=== PATIENT | male | born 1940 | race Caucasian/White ===

== ENCOUNTER 2018-02-15 00:16 | Emergency (ER) | payer SELFPAY ==
[~2018-02-15] VITALS: Ht 172.7 cm; Wt 60.3 kg
[~2018-02-15 00:16] MED LIST: ACET325 PO; ALBU90OI INH; CHOL10002; CIPRO500 MG PO; CYAN1000 PO; LAMO25 PO; LOVA40; METO100ER PO; OXYB5 PO; PHENY30ER PO; QUET300 PO; SENN187 PO; STRIVERDI RESPIM4 GM IH; URSO300 PO
[2018-02-15 01:14] LABS: BASOPHILS ABSOLUTE AUTO 0.03 K/mm3 (0.00-0.23); BASOPHILS PERCENT AUTO 0 % (0-2); EOSINOPHILS ABSOLUTE AUTO 0.44 K/mm3 (0.00-0.68); EOSINOPHILS PERCENT AUTO 6 % (0-6); Hematocrit 32.6 % (37.0-53.0); Hemoglobin 10.9 g/dL (13.5-17.5); IMMATURE GRAN ABSOLUTE AUTO 0.03 K/mm3 (0.00-0.10); IMMATURE GRAN PERCENT AUTO 0 % (0-1); LYMPHOCYTES ABSOLUTE AUTO 1.72 K/mm3 (0.84-5.20); LYMPHOCYTES PERCENT AUTO 24 % (21-46); MONOCYTES ABSOLUTE AUTO 0.66 K/mm3 (0.16-1.47); MONOCYTES PERCENT AUTO 9 % (4-13); Mean Corpuscular HGB 33.1 pg (26.0-34.0); Mean Corpuscular HGB Conc 33.4 g/dL (31.5-36.5); Mean Corpuscular Volume 99 fL (80-100); Mean Platelet Volume 9.9 fL (9.1-12.4); NEUTROPHILS ABSOLUTE AUTO 4.25 K/mm3 (1.96-9.15); NEUTROPHILS PERCENT AUTO 60 % (41-73); Platelet Count 163 K/mm3 (150-400); RDW Coefficient Variation 13.5 % (11.7-14.2); RDW Standard Deviation 48.7 fL (35.1-46.3); Red Blood Cell Count 3.29 M/mm3 (4.30-5.90); White Blood Cell Count 7.13 K/mm3 (4.00-11.30)
[2018-02-15 01:31] LABS: Alanine Aminotransfer (ALT/SGP 17 U/L (12-78); Albumin, Blood 3.3 g/dL (3.4-5.0); Albumin/Globulin Ratio 0.9 (0.8-1.8); Alk Phos 65 U/L (50-136); Anion Gap 6 mmol/L (6-16); Aspartate Aminotrans (AST/SGOT 15 U/L (12-37); Bilirubin, Total 0.2 mg/dL (0.1-1.0); Blood Urea Nitrogen 21 mg/dL (8-24); Bun/Creatinine Ratio 22.2 (12.0-20.0); CO2, Blood 30 mmol/L (21-32); Calcium, Blood 7.9 mg/dL (8.5-10.1); Chloride, Blood 105 mmol/L (98-108); Creatinine, Blood 0.94 mg/dL (0.60-1.20); Globulin, Blood 3.7 g/dL (2.2-4.0); Glomerular Filtration Rate >60 (60-); Glucose, Blood 123 mg/dL (70-99); Potassium, Blood 4.2 mmol/L (3.5-5.5); Sodium, Blood 141 mmol/L (136-145); Troponin I <0.015 ng/mL (0.000-0.040)
== END 2018-02-15 03:10 | disposition home or self-care (01) ==
LOC: ER 00:16
PROVIDERS: Emergency Medicine
DX: R07.9 Chest pain, unspecified (principal); I25.10 Atherosclerotic heart disease of native coronary artery without angina pectoris; J44.9 Chronic obstructive pulmonary disease, unspecified; Z79.899 Other long term (current) drug therapy
CPT/HCPCS: 36415; 71046; 80053; 83880; 84484; 85025; 93005; 93010; 99284-25

== ENCOUNTER 2018-09-16 22:13 | Observation (INO) | payer OTHER ==
[~2018-09-16] VITALS: Ht 177.8 cm; Wt 65.8 kg
[~2018-09-16 22:13] MED LIST changes: -CHOL10002; +CHOL10002 PO; -CYAN1000 PO; +CYAN500 PO; +PHENY100ER PO; -PHENY30ER PO
[2018-09-16 22:51] LABS: BASOPHILS ABSOLUTE AUTO 0.04 K/mm3 (0.00-0.23); BASOPHILS PERCENT AUTO 1 % (0-2); EOSINOPHILS ABSOLUTE AUTO 0.36 K/mm3 (0.00-0.68); EOSINOPHILS PERCENT AUTO 5 % (0-6); Hematocrit 34.3 % (37.0-53.0); Hemoglobin 11.4 g/dL (13.5-17.5); IMMATURE GRAN ABSOLUTE AUTO 0.02 K/mm3 (0.00-0.10); IMMATURE GRAN PERCENT AUTO 0 % (0-1); LYMPHOCYTES PERCENT AUTO 21 % (21-46); MONOCYTES ABSOLUTE AUTO 0.77 K/mm3 (0.16-1.47); MONOCYTES PERCENT AUTO 11 % (4-13); Mean Corpuscular HGB 33.4 pg (26.0-34.0); Mean Corpuscular HGB Conc 33.2 g/dL (31.5-36.5); Mean Corpuscular Volume 101 fL (80-100); Mean Platelet Volume 9.3 fL (9.1-12.4); NEUTROPHILS PERCENT AUTO 63 % (41-73); Platelet Count 171 K/mm3 (150-400); RDW Coefficient Variation 13.4 % (11.7-14.2); RDW Standard Deviation 50.2 fL (35.1-46.3); Red Blood Cell Count 3.41 M/mm3 (4.30-5.90); White Blood Cell Count 7.29 K/mm3 (4.00-11.30)
[2018-09-16 23:06] LABS: Alanine Aminotransfer (ALT/SGP 13 U/L (12-78); Albumin, Blood 3.2 g/dL (3.4-5.0); Albumin/Globulin Ratio 0.9 (0.8-1.8); Alk Phos 73 U/L (50-136); Anion Gap 6 mmol/L (6-16); Aspartate Aminotrans (AST/SGOT 9 U/L (12-37); Bilirubin, Total 0.2 mg/dL (0.1-1.0); Blood Urea Nitrogen 20 mg/dL (8-24); Bun/Creatinine Ratio 20.3 (12.0-20.0); CO2, Blood 29 mmol/L (21-32); Calcium, Blood 7.6 mg/dL (8.5-10.1); Chloride, Blood 107 mmol/L (98-108); Creatinine, Blood 0.99 mg/dL (0.60-1.20); Globulin, Blood 3.7 g/dL (2.2-4.0); Glomerular Filtration Rate >60 (60-); Glucose, Blood 110 mg/dL (70-99); Potassium, Blood 3.7 mmol/L (3.5-5.5); Sodium, Blood 142 mmol/L (136-145); Total Protein, Blood 6.9 g/dL (6.4-8.2); Troponin I <0.015 ng/mL (0.000-0.040)
[2018-09-17 01:55] LABS: Source, Urine Clean Catch
[2018-09-17 02:06] LABS: Bilirubin, Urine Neg (Neg); Blood, Urine 4+ (Neg); Glucose Qualitative, Urine Neg (Neg); Ketones, Urine 1+ (Neg); Leukocyte Esterase, Urine 3+ (Neg); Nitrite, Urine Pos (Neg); Protein, Urine 2+ (Neg); Urobilinogen, Urine NORM (Normal); pH, Urine 6.5 (5.0-8.0)
[2018-09-17 02:10] LABS: Appearance, Urine Cloudy (Clear); Color, Urine Yellow (P-Yellow)
[2018-09-17 02:24] LABS: White Blood Cells, Urine 25-50 /hpf (0-5)
[2018-09-17 02:25] LABS: Bacteria Many /hpf; Squamous Epithelial Cells Few /hpf (Few)
--- NOTE | 2018-09-17 02:25 | NUR ---
PT IS A NEW ADMIT FROM ER FOR CHEST PAIN. HAS DENIED CP SINCE ARRIVAL TO UNIT. PT HAS BEEN ST CATH PER HOME ROUTINE BEFORE BED, URINE SENT TO LAB. TELE IS IN PLACE NSR. IVF STARTED. DNR ORDERED VERIFIED WITH VIKI AND PLACED PURPLE BAND ON LEFT WRIST. CALL LIGHT IN REACH. PT IS RESTING COMFORTABLY, NO FURTHER QUESTIONS.
--- NOTE | 2018-09-17 03:54 | NUR ---
CALLED DR. MCDONOUGH RE LAB RESULTS. NEW ORDERS FOR IV ABX AND CTA TO R/O PE.
--- NOTE | 2018-09-17 05:02 | NUR ---
NO SIG CHANGES SINCE ARRIVING TO UNIT. IV ABX HAVE BEEN INITIATED FOR UTI. WILL DO CTA THIS AM FOR R/O PE. HAS DENIED ANY CP. REPEAT TROP IS SCHEDULED FOR 629. CALL LIGHT IN REACH.
[2018-09-17 07:01] LABS: Hematocrit 34.1 % (37.0-53.0); Hemoglobin 11.3 g/dL (13.5-17.5); Mean Corpuscular HGB 33.6 pg (26.0-34.0); Mean Corpuscular HGB Conc 33.1 g/dL (31.5-36.5); Mean Corpuscular Volume 102 fL (80-100); Mean Platelet Volume 9.1 fL (9.1-12.4); Platelet Count 170 K/mm3 (150-400); RDW Coefficient Variation 13.3 % (11.7-14.2); Red Blood Cell Count 3.36 M/mm3 (4.30-5.90); White Blood Cell Count 6.17 K/mm3 (4.00-11.30)
[2018-09-17 07:13] LABS: Alanine Aminotransfer (ALT/SGP 9 U/L (12-78); Albumin/Globulin Ratio 0.9 (0.8-1.8); Alk Phos 70 U/L (50-136); Anion Gap 5 mmol/L (6-16); Aspartate Aminotrans (AST/SGOT 8 U/L (12-37); Bilirubin, Total 0.7 mg/dL (0.1-1.0); Blood Urea Nitrogen 18 mg/dL (8-24); Bun/Creatinine Ratio 21.3 (12.0-20.0); CO2, Blood 29 mmol/L (21-32); CPK Creatine Kinase 41 U/L (39-308); Calcium, Blood 7.4 mg/dL (8.5-10.1); Chloride, Blood 108 mmol/L (98-108); Creatinine, Blood 0.85 mg/dL (0.60-1.20); Globulin, Blood 3.5 g/dL (2.2-4.0); Glomerular Filtration Rate >60 (60-); Glucose, Blood 81 mg/dL (70-99); Potassium, Blood 3.9 mmol/L (3.5-5.5); Sodium, Blood 142 mmol/L (136-145); Total Protein, Blood 6.5 g/dL (6.4-8.2); Troponin I <0.015 ng/mL (0.000-0.040)
[2018-09-17] MEDS ORDERED: PHENY100ER PO (08:21)
[2018-09-17] MEDS ORDERED: PRED1 PO (08:23)
[2018-09-17] MEDS ORDERED: AZIT250 PO (08:23)
[2018-09-17] MEDS ORDERED: BUDE10.22 INH (08:24)
--- NOTE | 2018-09-17 08:50 | NUR ---
PT TO BE GOING TO STUDY. PT REQ TO BE STRAIGHT CATH BEFORE GOING TO STUDY. PT REPORTS BEING S/C AT HOME.
--- NOTE | 2018-09-17 09:25 | NUR ---
PT BACK FROM HAVING PROCEDURE. DR PARISI HERE TO SEE PT.
--- NOTE | 2018-09-17 11:40 | NUR ---
PT RECENTLY BACK FROM STUDY AGAIN. PT REQ TO BE STRAIGHT CATH. PT S/C PER ORDER/PT REQ.
[2018-09-17 14:45] LABS: CPK Creatine Kinase 55 U/L (39-308); Troponin I <0.015 ng/mL (0.000-0.040)
--- NOTE | 2018-09-17 15:55 | NUR ---
DISCHARGE: PT DISCHARGED WITH ASSIST FROM CODE NUMBER STAMPER. PT AND FAMILY REPORTS UNDERSTADING OF DISCHARGE INSTRUCTIONS. IV OUT WNL. PT AND FAMILY REPORTS HAVING APPR EQUIP AT HOME TO ASSIST PT.
== END 2018-09-17 16:00 | disposition home or self-care (01) ==
LOC: ER 22:13 → SURS 22:14
PROVIDERS: Emergency Medicine; ADMIT Internal Medicine
DX: R07.9 Chest pain, unspecified (principal); J44.9 Chronic obstructive pulmonary disease, unspecified; E78.5 Hyperlipidemia, unspecified; I95.9 Hypotension, unspecified; I25.2 Old myocardial infarction; I10 Essential (primary) hypertension; I25.10 Atherosclerotic heart disease of native coronary artery without angina pectoris; D64.9 Anemia, unspecified; R79.1 Abnormal coagulation profile; F17.210 Nicotine dependence, cigarettes, uncomplicated; Z79.899 Other long term (current) drug therapy; Z87.19 Personal history of other diseases of the digestive system; Z95.1 Presence of aortocoronary bypass graft
CPT/HCPCS: 36415; 51701; 71046; 71260; 78452; 80053; 81001; 82550; 83690; 84484; 85025; 85027; 85379; 87077; 87086; 87186; 93005; 93010; 93017; 94640; 94760; 96365; 96372; 96374; 96375; 99285-25; A9500; G0378; J0696; J0706; J1650; J2270; J2405; J2785; J2930; J7030; Q9967

== ENCOUNTER 2020-04-17 12:41 | Inpatient (IN) | payer OTHER, MEDICARE ==
[~2020-04-17] VITALS: Ht 172.7 cm; Wt 66.2 kg
[~2020-04-17 12:41] MED LIST changes: +AZIT250 PO; +BUDE10.22 INH; +LAMO100 PO; +Motion Sickness25 M1 PO; +ONDA4; +OXYB5; +PRED1 PO; +PRED5 PO; +QUET100 PO
[2020-04-17] MEDS ORDERED: SYMBICORT 160-4.6 GM INH (12:54)
[2020-04-17] MEDS ORDERED: PHENYTOIN SODI100 MG PO ×2 (12:55→12:56)
[2020-04-17] MEDS ORDERED: OXYB5 PO (12:55)
[2020-04-17] MEDS ORDERED: ALBU90OI INH (12:56)
[2020-04-17 14:24] LABS: BASOPHILS ABSOLUTE AUTO 0.03 K/mm3 (0.00-0.23); BASOPHILS PERCENT AUTO 0 % (0-2); EOSINOPHILS ABSOLUTE AUTO 0.01 K/mm3 (0.00-0.68); EOSINOPHILS PERCENT AUTO 0 % (0-6); Hematocrit 35.1 % (37.0-53.0); Hemoglobin 11.7 g/dL (13.5-17.5); IMMATURE GRAN ABSOLUTE AUTO 0.07 K/mm3 (0.00-0.10); IMMATURE GRAN PERCENT AUTO 1 % (0-1); LYMPHOCYTES ABSOLUTE AUTO 1.14 K/mm3 (0.84-5.20); LYMPHOCYTES PERCENT AUTO 8 % (21-46); MONOCYTES ABSOLUTE AUTO 1.39 K/mm3 (0.16-1.47); MONOCYTES PERCENT AUTO 10 % (4-13); Mean Corpuscular HGB 31.7 pg (26.0-34.0); Mean Corpuscular HGB Conc 33.3 g/dL (31.5-36.5); Mean Corpuscular Volume 95 fL (80-100); Mean Platelet Volume 9.9 fL (9.1-12.4); NEUTROPHILS PERCENT AUTO 81 % (41-73); Platelet Count 202 K/mm3 (150-400); RDW Coefficient Variation 14.8 % (11.7-14.2); RDW Standard Deviation 51.7 fL (35.1-46.3); Red Blood Cell Count 3.69 M/mm3 (4.30-5.90); White Blood Cell Count 13.74 K/mm3 (4.00-11.30)
[2020-04-17 14:31] LABS: Albumin, Blood 2.8 g/dL (3.4-5.0); Albumin/Globulin Ratio 0.7 (0.8-1.8); Bilirubin, Total 0.6 mg/dL (0.1-1.0); Bun/Creatinine Ratio 22.7 (12.0-20.0); Calcium, Blood 8.4 mg/dL (8.5-10.1); Creatinine, Blood 1.81 mg/dL (0.60-1.20); Globulin, Blood 4.2 g/dL (2.2-4.0); Potassium, Blood 4.1 mmol/L (3.5-5.5)
--- NOTE | 2020-04-17 19:40 | NUR ---
SHIFT SUMMARY PT A&OX3, VSS, 2LNC, NPO, NG TUBE TO LIS WITH DK GREEN OUTPUT, COLOSTOMY W/O OUTPUT, BLADDER SCAN 0 MLS URINE. DENIES PAIN. DENIES N&V. REPORT PROVIDED TO GEETA IVAN.
[2020-04-17 23:23] LABS: Source, Urine Clean Catch
[2020-04-17 23:33] LABS: Bilirubin, Urine Neg (Neg); Blood, Urine 4+ (Neg); Glucose Qualitative, Urine Neg (Neg); Ketones, Urine Neg (Neg); Leukocyte Esterase, Urine 3+ (Neg); Nitrite, Urine Neg (Neg); Protein, Urine 3+ (Neg); Urobilinogen, Urine NORM (Normal)
[2020-04-17 23:44] LABS: Appearance, Urine Turbid (Clear); Color, Urine Yellow (P-Yellow)
[2020-04-17 23:46] LABS: Bacteria Many /hpf; Squamous Epithelial Cells Not Seen /hpf (Few); White Blood Cells, Urine TNTC /hpf (0-5)
--- NOTE | 2020-04-18 03:47 | NUR ---
SHIFT SUMMARY PT IS A/O, SEEMS FORGETFUL AT TIMES; BED ALARM IN USE THROUGHOUT SHIFT. PT REPOSITIONS SELF WELL IN BED AND ASSISTED PRN. PT DENIES PAIN. NG TUBE SECURED IN PLACE TO LOW INT. SUCTION. MINIMAL OUTPUT THIS SHIFT. PT USING 2L O2 NC TO MAINTAIN O2 SAT ABOVE 92%. PT REPORTS NO NAUSEA DURING THE NIGHT. PT HAS BEEN UNABLE TO VOID COMPLETELY AND REQUIRED STRAIGHT CATH. REPORTS HE USES STRAIGHT CATH AT HOME AT BASELINE AND HAS BEEN FOR "A LONG TIME" DUE TO PROSTATE CANCER HX.
[2020-04-18 04:48] LABS: BASOPHILS ABSOLUTE AUTO 0.03 K/mm3 (0.00-0.23); BASOPHILS PERCENT AUTO 0 % (0-2); EOSINOPHILS ABSOLUTE AUTO 0.09 K/mm3 (0.00-0.68); EOSINOPHILS PERCENT AUTO 1 % (0-6); Hematocrit 36.4 % (37.0-53.0); Hemoglobin 12.1 g/dL (13.5-17.5); IMMATURE GRAN ABSOLUTE AUTO 0.03 K/mm3 (0.00-0.10); IMMATURE GRAN PERCENT AUTO 0 % (0-1); LYMPHOCYTES ABSOLUTE AUTO 1.38 K/mm3 (0.84-5.20); LYMPHOCYTES PERCENT AUTO 15 % (21-46); MONOCYTES ABSOLUTE AUTO 1.04 K/mm3 (0.16-1.47); MONOCYTES PERCENT AUTO 11 % (4-13); Mean Corpuscular HGB 31.8 pg (26.0-34.0); Mean Corpuscular HGB Conc 33.2 g/dL (31.5-36.5); Mean Corpuscular Volume 96 fL (80-100); Mean Platelet Volume 9.6 fL (9.1-12.4); NEUTROPHILS ABSOLUTE AUTO 6.63 K/mm3 (1.96-9.15); NEUTROPHILS PERCENT AUTO 72 % (41-73); Platelet Count 195 K/mm3 (150-400); RDW Coefficient Variation 14.6 % (11.7-14.2); RDW Standard Deviation 52.2 fL (35.1-46.3)
[2020-04-18 05:08] LABS: Bun/Creatinine Ratio 28.7 (12.0-20.0); Calcium, Blood 8.4 mg/dL (8.5-10.1); Creatinine, Blood 1.57 mg/dL (0.60-1.20); Potassium, Blood 3.5 mmol/L (3.5-5.5)
--- NOTE | 2020-04-18 19:48 | NUR ---
SHIFT SUMMARY PT A&OX3, AMBLER, NPO, 3LNC, BIOX AT BEDSIDE, DNR R WRIST. ABD MOD DISTENDED, SEVERE PAIN MANAGED WITH 0.5-1 MG DILAUDID. NG TUBE 400 MLS OUT. HOB 30 DEGREES ELEVATED. ATTEMPTED AND FAILED RAYGOZA PLACEMENT WITH SILICONE 14 FR. ATTENDS ON, INCONTINENT, URINE OUTPUT IS GOOD, PT HAS NO COMPLAINTS OF HAVING TO VOID. OSTOMY WITH 60 MLS LIQUID BROWN. REPORT PROVIDED TO GEETA IVAN.
[2020-04-18 21:09] LABS: PCO2 Venous 74.6 mmHg (38-42); pH Blood Venous 7.25 (7.34-7.37)
[2020-04-18 21:10] LABS: Base Excess Venous 5 mmol/L; Bicarbonate Venous 26.2 mmol/L (24.0-30.0); PO2 Venous 25.2 mmHg (38-42)
[2020-04-18 22:28] LABS: Hemoglobin 10.4 g/dL (13.5-17.5); Mean Corpuscular HGB 31.8 pg (26.0-34.0); Mean Corpuscular HGB Conc 32.5 g/dL (31.5-36.5); Mean Corpuscular Volume 98 fL (80-100); Mean Platelet Volume 10.1 fL (9.1-12.4); Platelet Count 145 K/mm3 (150-400); RDW Coefficient Variation 14.4 % (11.7-14.2); RDW Standard Deviation 51.9 fL (35.1-46.3); Red Blood Cell Count 3.27 M/mm3 (4.30-5.90); White Blood Cell Count 2.75 K/mm3 (4.00-11.30)
--- NOTE | 2020-04-18 22:47 | NUR ---
RAPID RESPONSE RN RECEIVED REPORT AT SHIFT CHANGE, INFORMED THAT PT HAD BEEN GIVEN 1MG IV DILAUDED FOR PAIN RECENTLY - SEE EMAR FOR TIME. 1929 RN ENTERED PT ROOM. NOTICED HR OF 134 ON BIOX MACHINE. VS TAKEN: HR 134, BP 63/32, RR 40, O2 89% ON 3L O2. PT REPOSITIONED, O2 INCR. TO 4L. DECR. LOC ALSO NOTED, WHICH WAS A CHANGE FROM PREVIOUSLY BEING A/O X4. SANE RN NOTIFIED AND AT BEDSIDE. 1944 - BP 63/39, HR MAINTAINING IN 130'S-140'S. 1999 - NARCAN GIVEN 2004 - BP 67/44, HR 124, FLUIDS INCR. 2018 - BP 124/102, HR 137, O2 89% ON 4L O2 NC. LOC IMPROVING 2024 - BP 156/109, HR 134, O2 88% ON 5L O2 NC 2032 - BP 73/47, HR 118, O2 88% ON 5L O2. LOC DECR. AGAIN. 2042 - BP 67/46, HR 124, O2 88 ON 5L NC. LOC NOT IMPROVING. 2044 - RAPID RESONSE CALLED 2049 - SECOND DOSE NARCAN GIVEN PER [facility]. BP 83/53, HR 139, O2 88% ON 5L 2052 - CBG RESULTS = 43; 1 AMP D50 GIVEN. BP 76/55, O2 89% USING MASK W/15L, HR 121 2057 - BP 100/58, O2 98% ON MASK W/15L 02, HR 144, RR 45 2106 - BP 117/78, O2 97, HR 141. LOC STILL DECR. 2108 - REPEAT CBP = 166 2109 - XRAY AT BEDSIDE COMPLETED 2119 - PT TRANSFERRED TO ICU. REPORT GIVEN AT BEDSIDE TO RECEIVING RN.
[2020-04-18 22:57] LABS: BAND PERCENT MAN 31 % (0-8); BASOPHILS PERCENT MAN 0 % (0-2); EOSINOPHILS ABSOLUTE MAN 0.02 K/mm3 (0.00-0.68); EOSINOPHILS PERCENT MAN 1 % (0-6); LYMPHOCYTES ABSOLUTE MAN 0.08 K/mm3 (0.84-5.20); LYMPHOCYTES PERCENT MAN 3 % (21-46); MONOCYTES ABSOLUTE MAN 0.16 K/mm3 (0.16-1.47); MONOCYTES PERCENT MAN 6 % (4-13); NEUTROPHILS ABSOLUTE MAN 2.47 K/mm3 (1.96-9.15); SEG NEUTROPHILS PERCENT MAN 59 % (41-73); TOTAL CELLS COUNTED 100
--- NOTE | 2020-04-18 23:54 | NUR ---
04/18 @ 21:20 PT. ARRIVED TO ICU FROM FLOOR, RECEIVED BEDSIDE REPORT. INITIALLY PT. WAS ABLE TO ANSWER YES/NO ?S, MOVE ALL EXTREMETIES, NO C/O PAIN. IN MINUTES AFTER BIPAP WAS PLACED, BLOOD PRESSURE DROPPED TO ~ 66/55, NONRESPONSIVE. NOTIFIED [facility] IMMEDIATELY, STARTED ON SEPTIC CARY BUNDLE. CALLED DR. ARRIAGA FOR CRITICAL CARE CONSULT, FAMILY WAS ALSO CALLED IN. SINCE PT. WAS OF [employer], A SCOW CAPTAIN WAS BROUGHT IN TO READ PT. LAST RIGHTS. WHILE AWAITING CENTRAL LINE PLACEMENT, ASKED FAMILY IF THEY WOULD LIKE TO CONTINUE WITH CARE. DR. ARRIAGA SPELLED OUT RATHER GRIM PICTURE, STATED THIS WOULD NOT LIKELY END WELL, FAMILY MADE THE DECISION TO MOVE TO COMFORT CARE. LEVOPHED DRIP WAS STOPPED, BIPAP REMOVED, AND TELEMETRY TURNED OFF. AT THIS MOMENT PT. DOES NOT EXHIBIT AND SIGNS OR SYMPTOMS OF BEING UNCOMFORTABLE. FAMILY AT BEDSIDE. WILL CONTINUE TO MONITOR.
--- NOTE | 2020-04-19 05:00 | NUR ---
SHIFT SUMMARY: PT HAS EYES OPEN WITH MINIMAL RESPONSIVENESS. FAMILY AT THE BEDSIDE. PT SHOWS NO S/S FOR PAIN, NAUSEA, VOMITING, OR SOB. PT RESTING IN BED COMFORTABLY. WILL CONTINUE TO MONITOR.
--- NOTE | 2020-04-19 13:43 | NUR ---
PT AT 1335. GRANDDAUGHTER AT ARRIVED SHORTLY AFTER.
== END 2020-04-19 13:35 | DRG 385 ==
LOC: ER 12:41 → SURS 17:37 → ICUW 17:37 → MEDS 17:37 → SURS 17:42 → ICUW 04-18 21:20 → MEDS 04-19 03:16
PROVIDERS: Emergency Medicine; Nurse Practitioner Acute Care; ADMIT Internal Medicine
PROC: 3E033XZ Introduction of Vasopressor into Peripheral Vein, Percutaneous Approach (ICD-10-PCS; principal; 2020-04-18)
DX: K50.912 Crohn's disease, unspecified, with intestinal obstruction (principal); R65.21 Severe sepsis with septic shock; A41.9 Sepsis, unspecified organism; Z87.891 Personal history of nicotine dependence; Z51.5 Encounter for palliative care; J44.9 Chronic obstructive pulmonary disease, unspecified; I25.2 Old myocardial infarction; E78.5 Hyperlipidemia, unspecified; Z85.46 Personal history of malignant neoplasm of prostate; Z66 Do not resuscitate; D72.829 Elevated white blood cell count, unspecified; Z93.3 Colostomy status; Z90.49 Acquired absence of other specified parts of digestive tract; I10 Essential (primary) hypertension
CPT/HCPCS: 36415; 71045; 74176; 80048; 80053; 81001; 82803; 82947; 83605; 83690; 85025; 87040; 87077; 87086; 87186; 94640; 94660; 94760; 94762; 96374-59; 96375-59; 96376-59; 99285-25; C9113; J1165; J1170; J1644; J2310; J2405; J3010; J7030; J7060; J7120